=== PATIENT | female | born 1995 | race Caucasian/White ===

== ENCOUNTER 2024-07-12 18:21 | Emergency (ER) | payer OTHER, SELFPAY ==
--- NOTE | ~2024-07-12 | XR_ITS ---
CLINICAL HISTORY: pain Chest X-ray, 1 View COMPARISON: CR/SR - XR CHEST 2V - 05/06/24 19:42 EST FINDINGS: No consolidation. A nipple shadow projects over the left lower chest. No pleural effusion. No pneumothorax. No cardiomegaly. No acute fracture. IMPRESSION: No acute findings. This document has been electronically signed by: Zack Garcia MD on 07/12/2024 21:32:08
--- NOTE | 2024-07-12 18:23 | ECG_ITS ---
Test Reason : CHEST PAIN Blood Pressure : */* mmHG Vent. Rate : 94 BPM Atrial Rate : 94 BPM P-R Int : 132 ms QRS Dur : 80 ms QT Int : 370 ms P-R-T Axes : 59 81 54 degrees QTcB Int : 462 ms Normal sinus rhythm Normal ECG When compared with ECG of 06-May-2024 19:16, No significant change was found Referred By: Amanda Hassan Electronically Signed By: Ramy Simmons
[2024-07-12 18:41] VITALS: BP 134/72; PULSE 100; RESP 20; TEMP 36.6; O2SAT 100; BMI 18.8
--- NOTE | 2024-07-12 18:42 | ED.CHESTPAIN ---
HPI - Chest Pain General Chief Complaint: Chest Pain Stated Complaint: chest,left arm pain Time Seen by Provider: 07/12/24 22:05 Source: patient Mode of arrival: ambulatory Limitations: no limitations History of Present Illness ED Provider: HPI narrative: Patient no significant past medical history except for anxiety complaining of sharp chest pain left lower ribs started earlier today lasted for few minutes gets worse on palpation no cough no injury pain lasting only for few minutes Related Data Previous Rx's ?Medication ?Instructions ?Recorded levofloxacin 500 mg tablet 500 mg PO DAILY 5 days #5 tabs 03/26/21 loperamide 2 mg tablet (Imodium 2 mg PO Q6H PRN loose stool #14 05/06/24 A-D) tabs ondansetron 4 mg disintegrating 4 mg PO Q6-8H PRN nausea and 05/06/24 tablet vomiting #7 tabs Allergies Allergy/AdvReac Type Severity Reaction Status Date / Time latex Allergy Rash Verified 07/12/24 18:44 levofloxacin [From Levaquin] AdvReac Muscle Pain Verified 07/12/24 18:44 Review of Systems Review of Systems: Yes all other systems are reviewed and are negative [facility] Past Medical History Medical History Kidney stone Anxiety IBS (irritable bowel syndrome) Social History Social History Alcohol intake: never Patient Tobacco Use Status: Never used Tobacco Advance Directives: No Advance Directives Information Provided: No Do you have a plan to hurt others: No Plan Physical Exam Vital Signs: Vital Signs: Last Vital Signs Temp 98.2 F 07/12/24 22:44 Pulse 97 07/12/24 22:44 Resp 16 07/12/24 22:44 BP 124/82 07/12/24 22:44 Pulse Ox 98 07/12/24 22:44 O2 Del Method Room Air 07/12/24 22:44 BMI result Body Mass Index 18.8 Appearance: Alert. Oriented X3. No acute distress. ENT: Pharynx normal. Oral Mucosa moist Neck: Normal inspection. Neck supple. CVS: Normal heart rate and rhythm. Pulses normal. Respiratory: No respiratory distress. Equal air entry bilateral, no wheezing/rales/rhonchi reproducible pain left lower rib Abdomen: Soft and nontender. Bowel sounds are present, no mass palpable, no CVA tenderness Skin: Skin warm and dry. Normal skin color. Normal skin turgor. Extremities: No lower extremity edema. No calf tenderness Neuro: Oriented X 3. No motor deficit. Course Course Course Narrative: This is a rapid medical exam performed by Amanda Hassan PA-C. The patient is a 29-year-old female who presents with chest pain. Patient states she woke with left lateral chest wall pain today. The pain is intermittent, reproducible with movement of the torso and palpation of chest wall. Denies repetitive activity or recent trauma. Patient is hemodynamically stable. We will be screening basic labs, an EKG chest x-ray. The patient can return to the waiting room pending her full medical assessment. Medical Decision Making Medical Decision Making [facility] Narrative: Patient has atypical chest pain heart score of 0 cardiogram cardiac enzymes negative discharge patient home Lab Data [facility] Lab Attestation statement: I reviewed the patient's lab results. 07/12/24 18:55 07/12/24 18:55 Labs: Lab Results 07/12/24 Range/Units 18:55 WBC 8.2 (4.8-10.8) X10*3/uL RBC 4.60 (4.20-5.50) X10*6/uL Hgb 13.3 (12.0-16.0) g/dl Hct 39.0 (37.0-47.0) % MCV 84.8 (80.0-98.0) fL MCH 28.9 (27.0-33.0) pg MCHC 34.1 (31.0-35.0) g/dl RDW 12.5 (11.0-16.0) % Plt Count 283 (160-400) X10*3/uL MPV 10.7 (9.4-12.3) fL Immature Gran % (Auto) 0.2 (0.0-0.4) % Neut % (Auto) 56.0 (45-73) % Lymph % (Auto) 34.1 (20-40) % Meagher % (Auto) 7.7 (2-11) % Eos % (Auto) 1.1 (0-4) % Baso % (Auto) 0.9 (0-2) % Lymph # (Auto) 2.8 (1.2-4.9) X10*3/uL Meagher # (Auto) 0.6 (0.1-1.2) X10*3/uL Eos # (Auto) 0.1 (0.0-0.4) X10*3/uL Baso # (Auto) 0.1 (0.0-0.2) X10*3/uL Abs Immat Gran (auto) 0.02 (0.00-0.03) X10*3/uL Absolute Neuts (auto) 4.6 (2.0-8.3) x10*3/uL Absolute Nucleated RBC 0.000 (0.0-0.012) X10*3/uL Nucleated RBC % (auto) 0.0 (0.0-0.2) /100WBC Sodium 138 (135-145) mmol/L Potassium 3.6 (3.3-5.1) mmol/L Chloride 108 (96-108) mmol/L Carbon Dioxide 23 (22-29) mmol/L Anion Gap 11 L (12-20) BUN 11 (9-16) mg/dL Creatinine 0.70 (0.5-1.4) mg/dL Estim Creat Clear Calc 85.8 Estimated GFR > 60 Random Glucose 111 (60-115) mg/dL Calcium 9.3 (8.4-10.2) mg/dL Total Bilirubin 0.4 (0.0-1.0) mg/dL AST 21 (5-31) U/L ALT 19 (0-31) U/L Alkaline Phosphatase 63 (39-117) U/L Troponin I High Sens < 2.7 (<3.5-17.0) ng/L Total Protein 7.5 (6.5-8.0) g/dL Albumin 4.7 (3.5-5.0) g/dL Beta HCG, Quant < 2 mIU/mL Independent Interpretation I performed an independent interpretation of an: EKG and Plain X-Ray Interpretation: Normal rhythm heart rate beats per minute normal intervals normal axis no acute ST-T changes no acute ischemia Radiology Impression Discussion of test interpretation with radiology: I have reviewed the radiologist's reading. Radiologist Impression: NAD Discharge Plan Discharge Clinical Impression: Atypical chest pain Patient Disposition: Home, Self-Care Instructions: Noncardiac Chest Pain (ED) Additional Instructions: Your chest pain is musculoskeletal unlikely from the heart Take Tylenol/Motrin for pain if needed Prescriptions: No Action levofloxacin 500 mg tablet 500 mg PO DAILY 5 Days Qty: 5 0RF ondansetron 4 mg tablet,disintegrating 4 mg PO Q6-8H PRN (Reason: nausea and vomiting) Qty: 7 0RF loperamide [Imodium A-D] 2 mg tablet 2 mg PO Q6H PRN (Reason: loose stool) Qty: 14 0RF Stand Alone Forms: Work/School Release Interventions: ED Discharge Assessment Last Done: 07/12/24 22:44 Discharge Date/Time: 07/12/24 22:44 Print Language: Romansh
--- OUTSIDE RECORDS SUMMARY | 2024-07-12 20:45 | XMS_ITS | Clinical Summary ---
Author Organization [facility] it Address [address] [place] [address] Care Team Providers Care Hammer Setter Name Role Phone Rachelle Smyth MD Primary Care Provider [phone] Surgical History Surgery Date Site/Laterality Comments APPENDECTOMY 2002 PROCEDURE: HISTORICAL APPENDECTOMY OTHER SURGICAL HISTORY 1992 PROCEDURE: MD TUBE THORACOSTOMY INCLUDES WATER SEAL; COMMENT: LITHOTRIPSY PROCEDURE: HISTORICAL LITHOTRIPSY OTHER SURGICAL HISTORY PROCEDURE: MD INDUCED DILATION & EVACUATION Medical History Medical History Date Comments Migraine 2011 DX:Migraine HSIL (high grade squamous intraepithelial lesion) on Pap smear of cervix 06/14/2017 DX:HSIL (high grade squamous intraepithelial lesion) on Pap smear of cervix; COMMENT: 12/27/16; pap in 07/24/17 was normal Mild intermittent asthma wit hout complication 09/14/2017 DX:Mild intermittent asthma without complication Chronic constipation 09/14/2017 DX:Chronic constipation History of kidney stones 11/01/2017 DX:Hist ory of kidney stones Menorrhagia with irregular cycle 02/23/2022 DX:Menorrhagia with irregular cycle Family History Medical History Relation Name Comments No Known Problems Brother 1 1/2 No Known Problems Brother 2 1/2 Alcohol/Drug Father No Known Problems Maternal Grandfather No Known Problems Maternal Grandmother Depression Mother benign breast c ysts Colon cancer Mother's side great aunt 40's Bladder Cancer Paternal Grandfather +EtOH use Other: IMMUNOCOMPROMISED Paternal Grandmother Other: IVIG tx for immunocomprominse Paternal Grandmother Other: hysterectomy d/t hpv cancer Paternal Grandmother Other: HEART SURGERY TO SELENA ECT HOLE IN VALVE Sister 1 1/2 Other: congenital heart defect Sister 1 1/2 Other: Prediabetes Sister 2 1/2 Multiple sclerosis Sister 3 full sister Other: CARDIAC MURMUR D/T MS Sister 3 full sister Other: cardiac murmur Sister 3 full sister Breast cancer Neg Hx Cervical cancer Neg Hx Ovarian cancer Neg Hx Uterine cancer Neg Hx Relation Name Status Comments Brother 1 1/2 Alive Brother 2 1/2 Alive Father Maternal Grandfather Alive Maternal Grandmother Alive Mother Alive Mother's side great aunt Alive Paternal Grandfather Alive Paternal Grandmother Alive Sister 1 1/2 Alive Sister 2 1/2 Alive Sister 3 full sister Alive Social History Tobacco Use Types Packs/Day Years Used Date Smoking Tobacco: Never Smokeless Tobacco: Never Alcohol Use Standard Drinks/Week Comments No 0 (1 standard drink = 0.6 oz pur e alcohol) Sex and Gender Information Value Date Recorded Sex Assigned at Not on file Gender Identity Not on file Sexual Orientation Not on file Obstetrics History Last Filed Vital Signs Vital Sign Reading Time Taken Comments Blood Pressure 132/90 01/11/2023 4:24 PM EDT Pulse 90 01/11/2023 3:37 PM EDT Temperature - - Respiratory Rate - - Oxygen Saturation - - Inhaled Oxygen Concentration - - Weight 54 kg (119 lb) 01/11/2023 3:37 PM EDT Height 157.5 cm (5' 2 ) 05/24/2022 2:48 PM EST Body Mass Index 21.77 05/24/2022 2:48 PM EST Plan of Treatment Health Maintenance Due Date Last Done Comments Pneumococcal Vaccine: Pediatrics (0 to 5 Years) and At-Risk Patients (6 to 64 Years) (1 of 2 - PCV) 1999 Depression Screening 05/08/2022 HIV Screening 05/08/2022 Hepatitis C Screening 05/08/2022 Social Influencers of Health Screening 05/08/2022 COVID-19 Vaccine ( season) 2024 Influenza Vaccine (#1) 2024 Cervical Cancer Screening: Pap Smear 07/02/2025 07/02/2022, 12/14/2018 DTaP,Tdap,and Td Vaccines (10 - Td or Tdap) 10/14/2032 10/14/2022, 09/04/2018, 08/21/2009, Additional history exists Hepatitis B Vaccines Completed 02/25/1994, 1993, 1993 HIB Vaccines Completed 08/23/1994, 11/05, 1993, Additional history exists IPV Vaccines Completed 06/14/1997, 08/05, 1993, Additional history exists MMR Vaccines Completed 06/14/1997, 08/23/1994 HPV Vaccines Completed 03/09/2007, 10/06, 08/08/2006 Meningococcal ACWY Vaccine Completed 09/30/2011, Hepatitis A Vaccines Aged Out No long er eligible based on patient's age to complete this topic RSV Immunization Patients Under 20 months Aged Out No longer eligible based on patient's age to complete this topic Varicella Vaccines Aged Out No longer eligible based on patient's age to complete this topic Procedures Procedure Name Priority Date/Time Associated Diagnosis Comments PAP SMEAR Routine 07/02/2022 from Last 3 Months or Most Recently Relevant to Health Maintenance Results * Pap smear (07/02/2022) 07/02/2022 Narrative HISTORICAL TESTING LAB RESULTING AGENCY - 07/20/2022 10:11 AM EST [id number] THINPREP PAP, IMAGED: ATYPICAL SQUAMOUS CELLS OF UNDETERMINED SIGNIFICANCE (ASCUS) . FLORENTINO KOENIG(ASCP) (CASE SCREENED 07 13 2022) JAMILA HEATH M.D. , PATHOLOGIST (CASE ELECTRONICALLY SIGNED 07 19 2022) RESULTS OF APTIMA HPV 16 AND 18/45 GENOTYPE ASSAY: HPV 16: ??NEGATIVE HPV 18/45: ??NEGATIVE RESULT OF APTIMA HIGH RISK HPV ASSAY: HIGH RISK HPV: ??POSITIVE (SEROTYPES 16,18,31,33,35,39,45,51,52,56,58,59,66,68) COMPLETED ON 2022-07-19 ADEQUACY: SATISFACTORY ENDOCERVICAL/TRANSFORMATION ZONE COMPONENT ABSENT. SOURCE: THINPREP PAP HPV IF ASCUS, CERVICAL, IMAGED CLINICAL INFORMATION: HPV IF DIAGNOSIS OF ASCUS. , PAP HX NEGATIVE 2019, [Z12.4] Roxana Lopez CN LAB CYTOLOGY ORDERAB LES HISTORICAL TESTING LAB RESULTING AGENCY from Last 3 Months or Most Recently Relevant to Health Maintenance Care Teams Hammer Setter Relationship Specialty Start Date End Date Rachelle Smyth MD PCP - General Internal Medicine 08/31/17
[2024-07-12 21:45] LABS: Basophils Absolute Auto 0.1 X10*3/uL (0.0-0.2); Basophils Percent Auto 0.9 % (0-2); Eosinophils Absolute Auto 0.1 X10*3/uL (0.0-0.4); Eosinophils Percent Auto 1.1 % (0-4); Hemoglobin 13.3 g/dl (12.0-16.0); Imm Gran Abs Auto 0.02 X10*3/uL (0.00-0.03); Imm Gran Pct Auto 0.2 % (0.0-0.4); Lymphocytes Absolute Auto 2.8 X10*3/uL (1.2-4.9); Lymphocytes Percent Auto 34.1 % (20-40); MANUAL DIFF FLAG NO; Mean Corpuscular HGB Conc 34.1 g/dl (31.0-35.0); Mean Corpuscular Hemoglobin 28.9 pg (27.0-33.0); Mean Corpuscular Volume 84.8 fL (80.0-98.0); Mean Platelet Volume 10.7 fL (9.4-12.3); Monocytes Absolute Auto 0.6 X10*3/uL (0.1-1.2); Monocytes Percent Auto 7.7 % (2-11); Neutrophils Absolute Auto 4.6 x10*3/uL (2.0-8.3); Platelet Count 283 X10*3/uL (160-400); Red Cell Distribution Width 12.5 % (11.0-16.0); White Blood Count 8.2 X10*3/uL (4.8-10.8)
[2024-07-12 22:00] LABS: Alanine Aminotransferase 19 U/L (0-31); Albumin Level 4.7 g/dL (3.5-5.0); Alkaline Phosphatase 63 U/L (39-117); Anion Gap 11 (12-20); Aspartate Amino Transferase 21 U/L (5-31); Bilirubin Total 0.4 mg/dL (0.0-1.0); Blood Urea Nitrogen 11 mg/dL (9-16); Calcium 9.3 mg/dL (8.4-10.2); Carbon Dioxide 23 mmol/L (22-29); Chloride 108 mmol/L (96-108); Creatinine Clr Calc Pharmacy 85.8; Estimated Glomerular Filt Rate > 60; Glucose Random 111 mg/dL (60-115); Potassium 3.6 mmol/L (3.3-5.1); Sodium 138 mmol/L (135-145); Total Protein 7.5 g/dL (6.5-8.0)
[2024-07-12 22:02] LABS: HCG Quantitative < 2 mIU/mL
[2024-07-12 22:19] VITALS: BP 124/82; PULSE 97; RESP 16; TEMP 36.8; O2SAT 98
[2024-07-12 22:22] LABS: Troponin-I High Sensitivity < 2.7 ng/L (<3.5-17.0)
[2024-07-12 22:44] VITALS: BP 124/82; PULSE 97; RESP 16; TEMP 36.8; O2SAT 98
== END 2024-07-12 22:44 | disposition home or self-care (01) ==
PROVIDERS: Physician Assistant Medical; Emergency Provider Internal Medicine; PCP Physician Assistant
DX: R07.89 Other chest pain (principal); M79.602 Pain in left arm; R10.2 Pelvic and perineal pain; Z79.899 Other long term (current) drug therapy
CPT/HCPCS: 36415; 71045; 80053; 84484; 84702; 85025; 93005; 99283; 99284

== ENCOUNTER 2025-02-21 11:37 | Outpatient (AMB) | payer OTHER, SELFPAY ==
[2025-02-21 11:43] VITALS: BP 108/72; PULSE 116; TEMP 36.7; O2SAT 96; BMI 19.2
--- NOTE | 2025-02-21 11:43 | AM.OFFWIN_ITS ---
Intake Vital Signs 02/21/25 11:43 Height 5 ft 2 in Weight 105 lb BMI 19.2 BP 108/72 Blood Pressure Location Rt brachial Position Sitting Pulse 116 H Pulse Source Pulse Oximeter Temp 98.1 F Temp Source Oral Pulse Oximetry (%) 96 Oxygen Delivery Method Room Air Intake Visit Reasons: ep congestion flu like symptoms Intake Note: pt presents with sinus congestion, head pain, body aches, chest pain/burning for 3 days Patient Tobacco Use Status: Never used Tobacco Allergies latex Allergy (Verified 02/21/25 11:45) Rash levofloxacin (From Levaquin) Adverse Reaction (Verified 02/21/25 11:45) Muscle Pain Medication List - Last Reconciled 02/21/25 by Nery Mireles NP acetaminophen 1,000 mg (2 x 500 mg) PO Q6H PRN albuterol sulfate 90 mcg/actuation (Ventolin HFA) 1 inh inhalation QID benzonatate 200 mg (2 x 100 mg) PO BID Do you need a note to return to daycare/school/sports/work: Yes HPI HPI Comments History of Present Illness Details 29 y/o Female patient who presents to [facility] walk [facility] clinic with c/o Sinus congestion, headaches, body aches, Fatigue, chest congestion, coughing and burning for 3 days now. [facility] Medical History (Updated 02/21/25 @ 12:12 by Nery Mireles NP) Upper respiratory infection Kidney stone Anxiety IBS (irritable bowel syndrome) Social History (System 08/02/24 @ 12:17 by Jayna Nance) Alcohol intake: never Patient Tobacco Use Status: Never used Tobacco Review of Systems Const All systems reviewed & are unremarkable except as noted in HPI and below Physical Exam Vital Signs: Last Vital Signs Temp 98.1 F 02/21/25 11:43 Pulse 116 H 02/21/25 11:43 BP 108/72 02/21/25 11:43 Pulse Ox 96 02/21/25 11:43 Oxygen Delivery Method Room Air 02/21/25 11:43 BMI result Body Mass Index 19.2 Const General: no acute distress, ill appearing and tired appearing Nutritional Appearance: thin Orientation/consciousness: patient oriented x3 HEENT Head: Yes normocephalic Ears: external ears normal and TM abnormal with fluid behind the TM bilateral General nose exam: Nasal discharge present Face and sinus: Yes sinuses nontender Mouth: moist mucous membranes Throat: Yes uvula midline Resp Effort & Inspection: normal respiratory effort, able to speak in complete sentences, no audible wheezes and Actively coughing Auscultation: clear to auscultation bilaterally, no crackles, no rales, no rhonchi and no wheezes Cardio Heart sounds: S1 normal heart sound present and S2 normal heart sound present Neuro General: patient oriented x3, gait normal and moves all extremities Psych Speech and movement: Normal speech and movement present Assessment & Plan Assessment & Plan (1) Upper respiratory infection: Code(s): J06.9 - Acute upper respiratory infection, unspecified Qualifiers: URI type: acute nasopharyngitis (common cold) Qualified Code(s): J00 - Acute nasopharyngitis [common cold] Plan: Ordered SARs Acetaminophen for body Pain relief. OTC cough/Cold remedies Rest and hydrate well with warm fluids. Orders: Orders SARS-CoV2/FLU/RSV Today J06.9 - Acute upper respiratory infection, unspecified Medications: New acetaminophen 1,000 mg (2 x 500 mg) PO Q6H PRN 30 caps 0RF pain J00 - Acute nasopharyngitis [common cold] benzonatate 200 mg (2 x 100 mg) PO BID 60 caps 0RF cough J00 - Acute nasopharyngitis [common cold] Discontinued levofloxacin Discontinued Reason: Patient Completed Course 500 mg PO DAILY 5 days 5 tabs 0RF loperamide (Imodium A-D) Discontinued Reason: Patient Completed Course 2 mg PO Q6H PRN 14 tabs 0RF loose stool ondansetron Discontinued Reason: Patient Completed Course 4 mg PO Q6-8H PRN 7 tabs 0RF nausea and vomiting Coding Level of Care Code Est Pt Level 4 (18233) Diagnoses Acute nasopharyngitis J00 URI type: acute nasopharyngitis (common cold) Time Spent (min) 20
--- OUTSIDE RECORDS SUMMARY | 2025-02-21 13:57 | XMS_ITS | Clinical Summary ---
Author Organization [address] [facility] Address [address] [place] [address] Phone Care Team Providers Care Mine Boss Name Role Phone Rachelle Smyth MD Primary Care Provider [phone] Allergies Active Allergy Reactions Criticality Noted Date Comments [place] And Derivatives Hives 08/30/2018 [place] Latex 08/20/2022 Passion fruit Levofloxacin Dermatitis 01/08/2022 Other Reaction(s): tendon pain Passion Fruit 08/09/2024 Shellfish Derived 08/09/2024 Medications polyethylene glycol (PEG) 17 gram/dose oral powder 17 g 1 (one) time each day. Active cholecalciferol (VITAMIN D-3) 25 mcg (1,000 unit) tablet Take 1 tablet (1,000 Units total) by mouth 1 (one) time each day. Active nortriptyline (PAMELOR) 10 mg capsule Take 1 capsule (10 mg total) by mouth at bedtime. 30 each 2 08/09/2024 Active Surgical History Surgery Date Site/Laterality Comments APPENDECTOMY 2002 PROCEDURE: HISTORICAL APPENDECTOMY OTHER SURGICAL HISTORY 1992 PROCEDURE: DC TUBE THORACOSTOMY INCLUDES WATER SEAL; COMMENT: LITHOTRIPSY PROCEDURE: HISTORICAL LITHOTRIPSY OTHER SURGICAL HISTORY PROCEDURE: DC INDUCED DILATION & EVACUATION Medical History Medical [...] drink = 0.6 oz pur e alcohol) Interpersonal Safety Answer Date Record ed Physical Abuse 08/09/2024 Verbal Abuse 08/09/2024 Comments No Sex and Gender Information Value Date Recorded Sex Assigned at Female 08/09/2024 7:55 AM EST Legal Sex Female 8:29 PM EST Gender Identity Female 08/09/2024 7:55 AM EST Sexual Orientation Straight 08/09/2024 7: 55 AM EST Obstetrics History Last Filed Vital Signs Vital Sign Reading Time Taken Comments Blood Pressure 120/82 08/09/2024 10:31 AM EST Pulse 83 08/09/2024 10:31 AM EST Temperature 36.6 C (97.8 F) 08/09/2024 9:15 AM EST Respiratory Rate 18 08/09/2024 10:3 1 AM EST Oxygen Saturation 100% 08/09/2024 10: 31 AM EST Inhaled Oxygen Concentration - - Weight 47.6 kg (104 lb 15.7 oz) 08/03/2024 3:57 PM EST Height 161 cm (5' 3.39 ) 08/03/2024 3:57 PM EST Body Mass Index 18.37 08/03/2024 3:57 PM EST Plan of Treatment Health Maintenance Due Date Last Done Comments Pneumococcal Vaccine: Pediatrics (0 to 5 Years) and At-Risk Patients (6 to 49 Years) (1 of 2 - PCV) 2012 Cholesterol Screening (Lipid Panel) 05/08/2022 HIV Screening 05/08/2022 Hepatitis C Screening 05/08/2022 Social Influencers of Health Screening 05/08/2022 Depression Screening 06/06/2024 Hypertension/CHF/CAD Annual BMP Blood Test 08/03/2024 COVID-19 Vaccine (2 - season) 2025 05/04/2021 Influenza Vaccine (#1) 2025 04/04/2023 Cervical Cancer Screening: Pap Smear 07/02/2025 07/02/2022, [...] on patient's age to complete this topic Meningococcal B Vaccine Aged Out No l onger eligible based on patient's age to complete [...] RESULTING AGENCY - 07/20/2022 10:11 AM EST [id number] THINPREP PAP, IMAGED: ATYPICAL SQUAMOUS CELLS OF UNDETERMINED SIGNIFICANCE (ASCUS) . DEEPTHI ZAMORA , FLORENTINO(ASCP) (CASE SCREENED 07 13 2022) JAMILA HEATH M.D. , PATHOLOGIST (CASE ELECTRONICALLY SIGNED 07 19 2022) RESULTS OF APTIMA HPV 16 AND 18/45 GENOTYPE ASSAY: HPV 16: NEGATIVE HPV 18/45: NEGATIVE RESULT OF APTIMA HIGH RISK HPV ASSAY: HIGH RISK HPV: POSITIVE (SEROTYPES 16,18,31,33,35,39,45,51,52,56,58,59,66,68) COMPLETED ON 2022-07-19 ADEQUACY: SATISFACTORY ENDOCERVICAL/TRANSFORMATION ZONE COMPONENT ABSENT. SOURCE: THINPREP PAP HPV IF ASCUS, CERVICAL, IMAGED CLINICAL INFORMATION: HPV IF DIAGNOSIS OF ASCUS. , PAP HX NEGATIVE 2019, [Z12.4] Roxana Lopez [facility] LAB CYTOLOGY ORDERABLES Final Result HISTORICAL TESTING LAB RESULTING AGENCY from Last 3 Months or Most Recently Relevant to Health Maintenance Insurance [employer] Care Teams Mine Boss Relationship Specialty Start Date End Date Rachelle Smyth MD [address] [place] [id number] PCP - General Internal Medicine 08/03/24
--- OUTSIDE RECORDS SUMMARY | 2025-02-21 13:57 | XMS_ITS | Clinical Summary ---
Author Organization [facility] Address [address] [place] [address] Care Team Providers Care Front End Developer Name Role Phone Unavailable Primary Care Provider Unavailabl e Allergies Active Allergy Reactions Criticality Noted Date Comments [place] 11/18/2022 Fruit 11/18/2022 Passionfruit Latex 11/18/2022 Levofloxacin 11/18/2022 Medications Medication Sig Dispensed Refills Start Date End Date Status Vit-Fe Fumarate-FA ( Plus) 27-1 MG TABS tablet Take 1 tablet by mouth every morning after breakfast. 0 Active Ferrous Gluconate 324 (37.5 Fe) MG tablet Take by mouth. 0 A ctive ondansetron (ZOFRAN) 4 MG tablet Take by mouth. 0 Active Active Problems Estimated Date of Delivery Comme nts Yes 12/17/2022 No known active problems Social History Tobacco Use Types Packs/Day Years Used Date Smoking Tobacco: Never Smokeless Tobacco: Never Tobacco Cessation:Counseling Given: Not Answered Alcohol Use Standard Drinks/Week Comments Never 0 (1 standard drink = 0.6 oz pur e alcohol) Estimated Date of Delivery Comme nts Yes 12/17/2022 Sex and Gender Information Value Date Recorded Sex Assigned at Not on file Gender Identity Not on file Sexual Orientation Not on file Job Start Date Occupation Industry Not on file Not on file Not on file Last Filed Vital Signs Vital Sign Reading Time Taken Comments Blood Pressure 123/73 11/18/2022 10:24 AM EDT Pulse 90 11/18/2022 10:24 AM EDT Temperature 36.8 C (98.3 F) 11/18/2022 10:24 AM EDT Respiratory Rate - - Oxygen Saturation 99% 11/18/2022 10:24 AM EDT Inhaled Oxygen Concentration - - Weight 62.1 kg (137 lb) 11/18/2022 10:24 AM EDT Height - - Body Mass Index - - Plan of Treatment Health Maintenance Due Date Last Done Comments Hepatitis C Screening 1993 COVID-19 Vaccine (#1) 1993 Depression Screening 2005 Preventative Health Evaluation 2011 Cervical Cancer Screening (Pap Smear) 2014 Influenza Vaccine (#1) 2025 DTap / Tdap / Td (9 - Td or Tdap) 10/14/2032 10/14/2022, 09/04/2018, 08/21/2009, Additional history exists RSV Adult > 60+ Yrs or (1 - 1-dose 75+ series) 2068 Hepatitis B Vaccines Completed 02/25/1994, 1993, 1993 Pneumococcal Vaccine Aged Out No long er eligible based on patient's age to complete this topic RSV Ped < 20 months Aged Out No longe r eligible based on patient's age to complete this topic
== END 2025-02-21 12:26 | disposition home or self-care (01) ==
PROVIDERS: PCP Physician Assistant; Visit Provider Nurse Practitioner Family
DX: J00 Acute nasopharyngitis [common cold] (principal)

== ENCOUNTER 2025-02-21 11:37 | Outpatient (REF) | payer OTHER, SELFPAY ==
[2025-02-21 15:00] LABS: Resp Syncy Virus RNA Qual PCR NEGATIVE (Negative); SARS COV2 PCR INHOUSE NEGATIVE (Negative)
== END 2025-02-21 11:38 | disposition home or self-care (01) ==
LOC: HO.LAB 11:37
PROVIDERS: Nurse Practitioner Family; PCP Physician Assistant
DX: J00 Acute nasopharyngitis [common cold] (principal); J06.9 Acute upper respiratory infection, unspecified
CPT/HCPCS: 87637